=== PATIENT | female | born 1995 | race Caucasian/White ===

== ENCOUNTER 2017-12-09 23:30 | Emergency (ER) | payer MEDICAID ==
[~2017-12-09] VITALS: Ht 170.2 cm; Wt 91.2 kg
[~2017-12-09 23:30] MED LIST: KEFLEX500 M1 PO; NAPROSYN500 MG PO; PYRIDIUM100 M1 PO
[2017-12-09] MEDS ORDERED: SYNTHROID88 MCG (23:44)
[2017-12-10 00:29] LABS: URINE BILIRUBIN NEGATIVE (Negative); URINE BLOOD 3+ (Negative); URINE CLARITY CLEAR; URINE COLOR YELLOW; URINE GLUCOSE-RANDOM NEGATIVE (Negative); URINE KETONES NEGATIVE (Negative); URINE LEUKOCYTES-REFLEX NEGATIVE (Negative); URINE NITRITE-REFLEX NEGATIVE (Negative); URINE PROTEIN TRACE (Negative); URINE UROBILINOGEN 0.2 E.U./dl (0.2-1.0)
[2017-12-10 00:41] LABS: BACTERIA-REFLEX >30 Many /HPF (None Seen); CASTS None Seen /LPF (None Seen); CRYSTALS None Seen /LPF (None Seen); MUCUS 4-6 Moderate strn/LPF (None Seen); SQUAMOUS 4-10 Moderate /LPF (0-3); TRANSITIONAL EPITHEL CELL 0-3 Few /LPF (None Seen); URINE RBC >20 Many /HPF (0-2); URINE WBC-REFLEX 0-5 Rare /HPF (0-5)
[2017-12-10] MEDS ORDERED: MOTION RELIEF25 MG PO (01:11)
[2017-12-10] MEDS ORDERED: ZOFRAN ODT4 MG PO (01:11)
[2017-12-10 01:22] VITALS: BP 119/69
== END 2017-12-10 01:22 | disposition home or self-care (01) ==
LOC: M.ERS 23:30
PROVIDERS: Emergency Medicine
DX: R42 Dizziness and giddiness (principal); E03.9 Hypothyroidism, unspecified; Z90.49 Acquired absence of other specified parts of digestive tract

== ENCOUNTER 2019-01-11 13:02 | Emergency (ER) | payer MEDICAID ==
[~2019-01-11] VITALS: Ht 170.2 cm; Wt 85.3 kg
[~2019-01-11 13:02] MED LIST changes: +MOTION RELIEF25 MG PO; +SYNTHROID88 MCG; +ZOFRAN ODT4 MG PO
[2019-01-11] MEDS ORDERED: METFORMIN HCL500 MG PO (13:14)
[2019-01-11] MEDS ORDERED: SYNTHROID25 MC1 PO (13:15)
[2019-01-11] MEDS ORDERED: SPIRONOLACTONE25 M1 PO (13:16)
[2019-01-11] MEDS ORDERED: IMIPRAMINE HCL10 M2 PO (13:16)
[2019-01-11 13:27] LABS: URINE BILIRUBIN NEGATIVE (Negative); URINE BLOOD 2+ (Negative); URINE CLARITY CLEAR; URINE COLOR YELLOW; URINE GLUCOSE-RANDOM NEGATIVE (Negative); URINE KETONES NEGATIVE (Negative); URINE LEUKOCYTES-REFLEX TRACE (Negative); URINE NITRITE-REFLEX NEGATIVE (Negative); URINE PROTEIN NEGATIVE (Negative); URINE UROBILINOGEN 0.2 E.U./dl (0.2-1.0)
[2019-01-11 13:31] LABS: ABSOLUTE EOSINOPHILS 0.4 thou/uL (0.0-0.7); ABSOLUTE MONOCYTES 0.5 thou/uL (0.0-1.2); ABSOLUTE NEUTROPHILS 4.7 thou/uL (1.6-8.1); BASOPHILS 0.5 %; EOSINOPHILS 5.4 %; HEMATOCRIT 42.3 % (37.0-47.0); HEMOGLOBIN 14.1 gm/dL (12.0-15.0); LYMPHOCYTES 26.2 %; MCHC 33.4 g/dL (28.0-37.0); MCV 80.9 fL (80.0-100.0); MPV 7.2 fl. (7.2-11.1); NUCLEATED RBCS 0 /100WBC; PLATELET COUNT* 438 thou/uL (150-400); POLYS 60.9 %; RBC 5.22 mil/uL (4.20-5.00); RDW-CV 13.5 % (10.5-14.5); WBC 7.7 thou/uL (4.0-11.0)
[2019-01-11 13:35] LABS: CASTS None Seen /LPF (None Seen); CRYSTALS None Seen /LPF (None Seen); MUCUS 4-6 Moderate strn/LPF (None Seen); SQUAMOUS 4-10 Moderate /LPF (0-3); URINE RBC 3-10 Few /HPF (0-2); URINE WBC-REFLEX 0-5 Rare /HPF (0-5)
[2019-01-11 13:51] LABS: CREATININE 0.7 mg/dL (0.6-1.3); POTASSIUM 3.7 mmol/L (3.5-5.1)
[2019-01-11 14:01] LABS: ALBUMIN 3.9 g/dL (3.4-5.0); TOTAL BILIRUBIN 0.3 mg/dL (<0.1-1.0); TOTAL PROTEIN 8.3 g/dL (6.4-8.2)
[2019-01-11] MEDS ORDERED: ANTIVERT25 MG PO (15:07)
[2019-01-11 15:44] VITALS: BP 123/81
== END 2019-01-11 15:47 | disposition home or self-care (01) ==
LOC: M.ERS 13:02
PROVIDERS: Nurse Practitioner Family
DX: R51 Headache (principal); R42 Dizziness and giddiness; E03.9 Hypothyroidism, unspecified

== ENCOUNTER 2020-04-12 15:04 | Emergency (ER) | payer MEDICAID ==
[~2020-04-12] VITALS: Ht 170.2 cm; Wt 81.7 kg
[~2020-04-12 15:04] MED LIST changes: +ANTIVERT25 MG PO; +IMIPRAMINE HCL10 M2 PO; +METFORMIN HCL500 MG PO; +SPIRONOLACTONE25 M1 PO; +SYNTHROID25 MC1 PO
[2020-04-12 16:16] VITALS: BP 156/79
== END 2020-04-12 16:17 | disposition home or self-care (01) ==
LOC: M.ERS 15:04
DX: M79.645 Pain in left finger(s) (principal); E03.9 Hypothyroidism, unspecified

== ENCOUNTER 2021-02-20 00:41 | Emergency (ER) | payer OTHER, MEDICAID ==
[~2021-02-20] VITALS: Ht 170.2 cm; Wt 74.8 kg
[2021-02-20] MEDS ORDERED: SLOW FE142 MG PO (01:00)
[2021-02-20] MEDS ORDERED: CABERGOLINE 0.0.5 MG PO (01:01)
[2021-02-20] MEDS ORDERED: IMIPRAMINE HCL25 MG PO (01:02)
[2021-02-20 02:46] VITALS: BP 118/70
== END 2021-02-20 02:46 | disposition home or self-care (01) ==
LOC: M.ERS 00:41
DX: M79.632 Pain in left forearm (principal); E03.9 Hypothyroidism, unspecified; Z79.899 Other long term (current) drug therapy; V49.59XA Passenger injured in collision with other motor vehicles in traffic accident, initial encounter; Y93.89 Activity, other specified; Y92.413 State road as the place of occurrence of the external cause; Y99.9 Unspecified external cause status

== ENCOUNTER 2021-02-24 18:13 | Emergency (ER) | payer OTHER, MEDICAID ==
[~2021-02-24] VITALS: Ht 170.2 cm; Wt 73.9 kg
[~2021-02-24 18:13] MED LIST changes: +CABERGOLINE 0.0.5 MG PO; +IMIPRAMINE HCL25 MG PO; +SLOW FE142 MG PO
[2021-02-24] MEDS ORDERED: APAP W/CODEINE1 TA2 PO (19:04)
[2021-02-24] MEDS ORDERED: NAPROSYN500 MG PO (19:04)
[2021-02-24 19:18] VITALS: BP 108/75
== END 2021-02-24 19:19 | disposition home or self-care (01) ==
LOC: M.ERS 18:13
DX: M79.632 Pain in left forearm (principal); E03.9 Hypothyroidism, unspecified; Z79.2 Long term (current) use of antibiotics; Z79.899 Other long term (current) drug therapy

== ENCOUNTER 2021-04-14 09:47 | Emergency (ER) | payer MEDICAID ==
[~2021-04-14] VITALS: Ht 170.2 cm; Wt 72.6 kg
[~2021-04-14 09:47] MED LIST changes: +APAP W/CODEINE1 TA2 PO
[2021-04-14] MEDS ORDERED: MEDROLDOSEPACK PO (12:00)
[2021-04-14 12:07] VITALS: BP 114/68
== END 2021-04-14 12:07 | disposition home or self-care (01) ==
LOC: M.ERS 09:47
DX: M54.16 Radiculopathy, lumbar region (principal); R20.2 Paresthesia of skin; E03.9 Hypothyroidism, unspecified

== ENCOUNTER 2021-06-02 00:43 | Emergency (ER) | payer MEDICAID ==
[~2021-06-02] VITALS: Ht 170.2 cm; Wt 72.6 kg
[~2021-06-02 00:43] MED LIST changes: +MEDROLDOSEPACK PO
[2021-06-02] MEDS ORDERED: MELOXICAM15 MG PO (02:21)
[2021-06-02] MEDS ORDERED: MEDROLDOSEPACK PO (02:21)
[2021-06-02 02:27] VITALS: BP 135/76
== END 2021-06-02 02:28 | disposition home or self-care (01) ==
LOC: M.ERS 00:43
DX: M70.72 Other bursitis of hip, left hip (principal); E03.9 Hypothyroidism, unspecified; Z79.84 Long term (current) use of oral hypoglycemic drugs; Z79.899 Other long term (current) drug therapy; Y93.89 Activity, other specified

== ENCOUNTER 2021-06-21 23:34 | Emergency (ER) | payer MEDICAID ==
[~2021-06-21] VITALS: Ht 170.2 cm; Wt 70.3 kg
[~2021-06-21 23:34] MED LIST changes: +MELOXICAM15 MG PO
[2021-06-21 23:35] VITALS: BP 114/75
== END 2021-06-22 00:09 | disposition home or self-care (01) ==
LOC: M.ERS 23:34
DX: H53.8 Other visual disturbances (principal); E03.9 Hypothyroidism, unspecified; Z79.899 Other long term (current) drug therapy

== ENCOUNTER 2021-06-24 14:18 | Emergency (ER) | payer MEDICAID ==
[~2021-06-24] VITALS: Ht 170.2 cm; Wt 70.3 kg
[2021-06-24 15:51] VITALS: BP 133/72
== END 2021-06-24 15:51 | disposition home or self-care (01) ==
LOC: M.ERS 14:18
DX: R51.9 Headache, unspecified (principal); E03.9 Hypothyroidism, unspecified; Z79.899 Other long term (current) drug therapy

== ENCOUNTER 2021-07-01 14:35 | Emergency (ER) | payer MEDICAID ==
[~2021-07-01] VITALS: Ht 170.2 cm; Wt 71.2 kg
[2021-07-01] MEDS ORDERED: APAP W/CODEINE1 TA2 PO (15:08)
[2021-07-01 15:30] VITALS: BP 103/76
== END 2021-07-01 15:30 | disposition home or self-care (01) ==
LOC: M.ERS 14:35
DX: J02.9 Acute pharyngitis, unspecified (principal); E03.9 Hypothyroidism, unspecified; Z79.899 Other long term (current) drug therapy

== ENCOUNTER 2021-07-28 18:39 | Emergency (ER) | payer MEDICAID ==
[~2021-07-28] VITALS: Ht 170.2 cm; Wt 70.3 kg
[2021-07-28 19:49] LABS: ABSOLUTE BASOPHILS 0.1 thou/uL (0.0-0.2); ABSOLUTE EOSINOPHILS 0.1 thou/uL (0.0-0.7); ABSOLUTE LYMPHOCYTES 2.5 thou/uL (0.8-5.3); ABSOLUTE MONOCYTES 0.5 thou/uL (0.0-1.2); BASOPHILS 0.7 %; EOSINOPHILS 1.6 %; HEMATOCRIT 38.4 % (37.0-47.0); HEMOGLOBIN 12.9 gm/dL (12.0-15.0); LYMPHOCYTES 30.9 %; MCH 28.1 pg (26.0-34.0); MCHC 33.6 g/dL (28.0-37.0); MCV 83.5 fL (80.0-100.0); MONOCYTES 5.7 %; MPV 7.6 fl. (7.2-11.1); NUCLEATED RBCS 0 /100WBC; PLATELET COUNT* 314 thou/uL (150-400); POLYS 61.1 %; RDW-CV 13.4 % (10.5-14.5); WBC 8.2 thou/uL (4.0-11.0)
[2021-07-28 19:55] LABS: CALCIUM 8.6 mg/dL (8.5-10.1); CREATININE 0.7 mg/dL (0.6-1.3); POTASSIUM 3.4 mmol/L (3.5-5.1)
[2021-07-28 20:06] LABS: URINE BILIRUBIN NEGATIVE (Negative); URINE BLOOD NEGATIVE (Negative); URINE CLARITY CLEAR; URINE COLOR YELLOW; URINE GLUCOSE-RANDOM NEGATIVE (Negative); URINE KETONES 1+ (Negative); URINE LEUKOCYTES-REFLEX NEGATIVE (Negative); URINE NITRITE-REFLEX NEGATIVE (Negative); URINE PROTEIN NEGATIVE (Negative); URINE SPECIFIC GRAVITY 1.025 (1.005-1.030); URINE UROBILINOGEN 0.2 E.U./dl (0.2-1.0)
[2021-07-28] MEDS ORDERED: MECLIZINE HCL25 M1 PO ×2 (20:39→22:41)
[2021-07-28 20:44] VITALS: BP 114/70
--- NOTE | 2021-07-29 16:39 | EKG ---
[place] [address] ELECTROCARDIOGRAM REPORT Name: MICHELLE MCKEON CAMRYN Room: [facility]#: [id number] Admission: 07/28/21 Attend Phys: Discharge: 07/28/21 Date of : 89 Date of Service: 07/28/211917 Report #: [id number] THIS REPORT FOR: //name// [facility] ED Test Date: 2021-07-28 Test Time: 19:18:48 Pat Name: MICHELLE MCKEON Department: Room: Gender: F Machine Biller: : [id number] Requested By: Bg Chaves Order Number: [id number] MD: Michael Espinoza Measurements Intervals [place] Rate: 81 P: -6 GA: 128 QRS: 82 QRSD: 81 T: 64 QT: 375 QTc: 436 Interpretive Statements Sinus rhythm Ventricular premature complex No previous ECG available for comparison Electronically Signed On 07-29-2021 16:39:48 SUPERVISOR COMPONENT [employer]SEMBLER by Michael Espinoza [email or web address] <ELECTRONICALLY SIGNED> By: Michael Espinoza MD, [facility] 07/29/21 1639 17 17 Michael Espinoza MD, FAC /EPI
== END 2021-07-28 20:44 | disposition home or self-care (01) ==
LOC: M.ERS 18:39
PROVIDERS: Physician Assistant
DX: H81.10 Benign paroxysmal vertigo, unspecified ear (principal); Z20.822 Contact with and (suspected) exposure to COVID-19; J02.9 Acute pharyngitis, unspecified; E03.9 Hypothyroidism, unspecified; Z79.899 Other long term (current) drug therapy

== ENCOUNTER 2021-08-02 23:44 | Emergency (ER) | payer MEDICAID ==
[~2021-08-02] VITALS: Ht 170.2 cm; Wt 70.3 kg
[~2021-08-02 23:44] MED LIST changes: +MECLIZINE HCL25 M1 PO
[2021-08-03 02:29] LABS: HEMATOCRIT 36.3 % (37.0-47.0); HEMOGLOBIN 12.2 gm/dL (12.0-15.0); MCH 27.9 pg (26.0-34.0); MCHC 33.5 g/dL (28.0-37.0); MCV 83.3 fL (80.0-100.0); MPV 7.8 fl. (7.2-11.1); RBC 4.36 mil/uL (4.20-5.00); RDW-CV 13.3 % (10.5-14.5); WBC 9.7 thou/uL (4.0-11.0)
[2021-08-03 02:45] LABS: CALCIUM 8.4 mg/dL (8.5-10.1); CREATININE 0.6 mg/dL (0.6-1.3); POTASSIUM 3.8 mmol/L (3.5-5.1)
[2021-08-03 02:50] LABS: ALBUMIN 3.6 g/dL (3.4-5.0); TOTAL BILIRUBIN 0.3 mg/dL (<0.1-1.0); TOTAL PROTEIN 6.8 g/dL (6.4-8.2)
[2021-08-03] MEDS ORDERED: CARAFATE 1 GM TA1 GM PO (03:55)
[2021-08-03] MEDS ORDERED: PEPCID40 MG PO (03:56)
[2021-08-03 04:12] VITALS: BP 96/64
--- NOTE | 2021-08-03 09:58 | EKG ---
[place] [address] ELECTROCARDIOGRAM REPORT Name: MICHELLE MCKEON Room: [facility]#: [id number] Admission: 08/02/21 Attend Phys: Discharge: 08/03/21 Date of : [birth year] Date of Service: 08/02/21 2346 Report #: [id number] THIS REPORT FOR: //name// [facility] ED Test Date: 2021-08-02 Test Time: 23:46:29 Pat Name: MICHELLE MCKEON Department: Room: Gender: Engineer Automated Equipment: : 1995 Requested By: Anitra Robledo Order Number: [id number] MD: Richard Dixon Measurements Intervals [place] Rate: 87 P: 58 NV: 140 QRS: 82 QRSD: 71 T: 54 QT: 357 QTc: 430 Interpretive Statements Sinus rhythm Ventricular premature complex Probable left atrial enlargement Compared to ECG 07/28/2021 19:18:48 No significant changes Electronically Signed On 08-03-2021 9:58:45 [employer]ATION OFFICER by Richard Dixon [email or web address] <ELECTRONICALLY SIGNED> By: Richard Dixon MD, [facility] 08/03/21 0958 2346 2346 Richard Dixon MD, [facility] /EPI
== END 2021-08-03 04:13 | disposition home or self-care (01) ==
LOC: M.ERS 23:44
PROVIDERS: Personal Emergency Response Attendant
DX: K22.4 Dyskinesia of esophagus (principal); Z20.822 Contact with and (suspected) exposure to COVID-19; K21.9 Gastro-esophageal reflux disease without esophagitis; E03.9 Hypothyroidism, unspecified; Z79.899 Other long term (current) drug therapy